=== PATIENT | male | born 1950 | race Caucasian/White ===

== ENCOUNTER 2018-07-30 08:25 | Day surgery (SDC) | payer OTHER, SELFPAY ==
[2018-07-30] MEDS: SODIUM CHLORIDE 0.9% 1,000 ML 200 ML IV (09:00)
[2018-07-30 09:07] VITALS: BP 137/73; PULSE 47; RESP 16; TEMP 36.4; O2SAT 96; BMI 30.7
--- NOTE | 2018-07-30 09:48 | PM.HP.1 ---
History of Present Illness Date Patient Seen: 07/30/18 Time Patient Seen: 09:48 Chief complaint: [id number] SCREENING COLONOSCOPY Narrative: The patient is a gentleman whose last colonoscopy was 10 years ago. He is here for screening examination. No family history of colon cancer. Patient History Medical History Elevated cholesterol (Chronic) Essential hypertension with goal blood pressure less than 130/85 (Chronic) Surgical History History of heart artery stent (Resolved) Family & Social History Social History: household members spouse Meds Home Medications Medication Instructions Recorded Confirmed Type aspirin 81 mg PO QDAY #0 02/25/17 07/30/18 History atorvastatin [Lipitor] 40 mg PO QDAY #0 02/25/17 07/30/18 History clopidogrel [Plavix] 75 mg PO QDAY #0 02/25/17 07/30/18 History hydrochlorothiazide 12.5 mg PO QDAY #0 02/25/17 07/30/18 History lisinopril 10 mg PO QDAY #0 02/25/17 07/30/18 History metoprolol tartrate 25 mg PO BID #0 02/25/17 07/30/18 History Allergies Allergy/AdvReac Type Severity Reaction Status Date / Time No Known Drug Allergies Allergy Verified 07/30/18 09:01 Review of Systems Review of Systems All systems reviewed & are unremarkable except as noted in HPI and below Exam Vital Signs (past 8 hours): - 07/30/18 09:07 Temperature 97.5 F L Pulse Rate 47 L Respiratory Rate 16 Blood Pressure 137/73 Pulse Oximetry 96 Oxygen Delivery Method Room Air Narrative Exam Narrative: Operative no apparent distress. Eyes nonicteric. Lungs clear to auscultation without rales or rhonchi. Heart regular rate and rhythm without murmur gallop. Abdomen is protuberant soft nontender without mass. No obvious hernias. Alert and oriented x3. Assessment & Plan Plan: Assessment/Plan Narrative: For screening colonoscopy. Last exam 10 years ago. I have discussed the procedure and the rationale with the patient including risks of bleeding, perforation which would necessitate a major operation, failure to find remove all lesions and the potential to tattoo. They appeared to understand and wished to proceed.
--- NOTE | 2018-07-30 09:51 | PM.PREOP ---
Pre-operative Note Interval Note Pre-op Check: Yes History & Physical exam performed today by Physician Changes: No ASA Class (for procedural sedation): III
[2018-07-30] MEDS: MIDAZOLAM 5 MG/5 ML VIAL IV (10:13)
[2018-07-30] MEDS: fentaNYL 250 MCG/5 ML INJ IV (10:14)
--- NOTE | 2018-07-30 10:24 | PM.OP.ENDO ---
Operative Date/Time/Diagnoses Date of procedure: 07/30/18 Time of procedure: 10:24 Pre-op diagnosis: Screening exam. Last colonoscopy 10 years ago. Post-op diagnosis: same (Sigmoid diverticulosis. Minor internal hemorrhoids near the anal verge.) Procedure & Clinicians Study performed: Colonoscopy Same procedure as scheduled: Yes Indications: Screening Surgeon: Tristan Forte Procedure Notes SCOAP/Timeout: Performed Procedure in detail: The patient was placed in the left lateral decubitus position and underwent IV sedation directed by the surgeon consisting of fentanyl and Versed. Digital exam was unremarkable. It was difficult for me to feel anything but the distal most part of his prostate. It was firm but I could not tell if it was enlarged. The scope was inserted and I inadvertently retroflexed in the rectum earlier than usual and was looking at the anus. There was some prominence of the veins. No lesions were seen. I advanced through the rectum into the sigmoid, descending, transverse, and ascending colon. The sigmoid was noted to have diverticulosis.. The cecum was reached identified by the ileocecal valve and the appendiceal opening. The ileocecal valve was normal in appearance and successfully cannulated. The terminal ileum was normal in appearance. Lymphoid follicles were prominent. The scope was gradually brought out. No Polyps were found. The scope ultimately was slowly brought through the rectum. The appearance was remarkable for some minor hemorrhoids near the anal verge. The scope was removed and the patient tolerated the procedure well Scope withdrawal time: Almost 8 min Sedation minutes: 17 Findings: diverticulosis (Sigmoid colon) Specimen(s): none sent Complications: none Recommendations: Colonscopy in 10 years
[2018-07-30 10:25] VITALS: BP 105/64; PULSE 56; RESP 10; TEMP 36.2; O2SAT 94
[2018-07-30 10:30] VITALS: BP 105/64; PULSE 57; RESP 12; O2SAT 95
[2018-07-30 10:38] VITALS: BP 117/67; PULSE 58; RESP 16; TEMP 37; O2SAT 93
== END 2018-07-30 10:50 | disposition home or self-care (01) ==
PROVIDERS: PCP Internal Medicine Cardiovascular Disease; Visit Provider Specialist
PROC: 0DJD8ZZ Inspection of Lower Intestinal Tract, Via Natural or Artificial Opening Endoscopic (ICD-10-PCS; CPT 45378; principal; 2018-07-30 09:45)
DX: Z12.11 Encounter for screening for malignant neoplasm of colon (principal); K57.30 Diverticulosis of large intestine without perforation or abscess without bleeding; K64.8 Other hemorrhoids; E78.00 Pure hypercholesterolemia, unspecified; I10 Essential (primary) hypertension
CPT/HCPCS: G0121; 99152; J2250; J3010

== ENCOUNTER → 2025-06-03 09:10 | Outpatient (CLI) | payer MEDICARE, SELFPAY ==
--- NOTE | 2025-06-03 09:12 | DI.NM.S_ITS ---
PROCEDURE: NM MALI PERF SPECT REST & STR Rest and exercise myocardial perfusion SPECT with gated imaging and ejection fraction RADIOPHARMACEUTICAL: 26.3 mCi Tc-99m sestamibi IV at rest and 26.2 mCi Tc-99m sestamibi IV at peak exercise. A 2day-protocol was performed. INDICATIONS: NUC MED TECHNIQUE: Radiopharmaceutical was injected at peak stress test, and also at rest. SPECT images were obtained. SPECT myocardial perfusion images were displayed in short axis, horizontal long axis, and vertical long axis views. Gated images were reviewed using Dynamics Direct software. COMPARISON: None. CARDIAC STRESS: A standard Dg treadmill exercise tolerance test was performed by the patient under the supervision of an attending staff. The patient exercised for 10 minutes and 19 seconds; 12.8 METS; functional aerobic impairment (ANÍBAL) is -62%. Hemodynamic data: There is normal blood pressure and heart rate response to exercise stress. Patient achieved 84% of maximum predicted heart rate at peak exercise. Peak blood pressure 152/78. Symptoms: Patient denied chest pain during exercise. EKG: No diagnostic EKG changes of ischemia; Frequent PCVs. FINDINGS: Raw data: There is good myocardial labeling by radiotracer. No significant motion artifacts. Xaeu-rw-ucsno ratio is 0.24 (normal is less than 0.38 for sestamibi tracer, and less than 0.50 for thallium tracer). Left ventricle function: Gated images demonstrate normal left ventricle wall thickening. No segmental wall motion abnormality. No transient ischemic dilation; TID is 0.91 (normal less than 1.3). The left ventricle resting end-diastolic volume is 118 mL. Left ventricle stress ejection fraction is 73%; normal values are above 45%. Myocardial perfusion: There a small size, mild intensity, fixed apical defect. No reversible perfusion defects. IMPRESSION: Low risk study. The small size, mild intensity fixed apical defect may be consistent with prior myocardial infarct vs apical thinning. No prone images obtained. Normal LV size and function. No exercise induced ST changes on ECG however frequent PVCs noted. Normal hemodynamic response. Excellent exercise capacity. Dictated by: Anjelica Ram D.O. on 06/08/2025 at 8:47 Approved by: Anjelica Ram D.O. on 06/08/2025 at 8:55
== END ==
PROVIDERS: PCP Internal Medicine Cardiovascular Disease; Referring Provider Internal Medicine Cardiovascular Disease; Visit Provider Internal Medicine Cardiovascular Disease
DX: I25.10 Atherosclerotic heart disease of native coronary artery without angina pectoris (principal)
CPT/HCPCS: 78452; 93017; A9502